=== PATIENT | male | born 1990 | race Caucasian/White ===

== ENCOUNTER 2020-02-28 06:27 | Outpatient (REF) | payer BC, SELFPAY ==
[2020-02-28 12:01] LABS: Alanine Aminotransferase 90 U/L (0-40); Albumin Level 4.2 g/dL (3.5-5.0); Alkaline Phosphatase 201 U/L (39-117); Anion Gap 14 (12-20); Aspartate Amino Transferase 58 U/L (5-37); Bilirubin Direct 7.1 mg/dL (0.0-0.5); Bilirubin Total 9.5 mg/dL (0.0-1.0); Blood Urea Nitrogen 10 mg/dL (9-16); Carbon Dioxide 25 mmol/L (22-29); Chloride 105 mmol/L (96-108); Estimated Glomerular Filt Rate > 60; Glucose Random 88 mg/dL (60-115); Potassium 4.1 mmol/l (3.3-5.1); Sodium 140 mmol/L (135-145); Total Protein 6.8 g/dL (6.5-8.0)
== END 2020-02-28 06:28 | disposition home or self-care (01) ==
LOC: HO.HMGCLDS 06:27
PROVIDERS: PCP Nurse Practitioner Family; Visit Provider Nurse Practitioner Family
DX: E80.6 Other disorders of bilirubin metabolism (principal)
CPT/HCPCS: 80053; 82248

== ENCOUNTER 2020-03-05 06:07 | Outpatient (REF) | payer BC, SELFPAY ==
[2020-03-05 11:22] LABS: INTERNATIONAL NORM RATIO 0.9 (0.9-1.1); Prothrombin Time 11.2 SEC (10.8-13.0)
[2020-03-05 11:27] LABS: Alanine Aminotransferase 90 U/L (0-40); Albumin Level 4.2 g/dL (3.5-5.0); Alkaline Phosphatase 192 U/L (39-117); Aspartate Amino Transferase 65 U/L (5-37); Iron 165 mcg/dL (45-160); Percent Iron Saturation 50 % (15-50); Total Iron Binding Capacity 328 mcg/dL (228-428); Total Protein 6.8 g/dL (6.5-8.0); Unsaturated Iron Binding 163 ug/dL
[2020-03-05 12:01] LABS: Ferritin 599 ng/mL (20-250)
[2020-03-07 13:32] LABS: Alpha 1 Anti-trypsin 203 mg/dL (83-199); Ceruloplasmin 49 mg/dL (18-36)
[2020-03-07 22:42] LABS: Anti Nuclear Antibody Pattern Mitotic, Centrosome; Anti Nuclear Antibody Screen POSITIVE (NEGATIVE); Anti Nuclear Antibody Titer 1:40 titer
== END 2020-03-05 06:08 | disposition home or self-care (01) ==
LOC: HO.HMGCLDS 06:07
PROVIDERS: PCP Nurse Practitioner Family; Visit Provider Internal Medicine
DX: K72.00 Acute and subacute hepatic failure without coma (principal); R94.5 Abnormal results of liver function studies
CPT/HCPCS: 36415; 80076; 82103; 82390; 82728; 83540; 85610; 86038; 86039

== ENCOUNTER 2020-03-12 06:20 | Outpatient (REF) | payer BC, SELFPAY ==
[2020-03-12 11:37] LABS: INTERNATIONAL NORM RATIO 0.9 (0.9-1.1); Prothrombin Time 10.3 SEC (10.8-13.0)
[2020-03-12 11:41] LABS: Alanine Aminotransferase 75 U/L (0-40); Alkaline Phosphatase 156 U/L (39-117); Aspartate Amino Transferase 51 U/L (5-37); Bilirubin Direct 3.2 mg/dL (0.0-0.5); Bilirubin Total 4.1 mg/dL (0.0-1.0); Total Protein 6.6 g/dL (6.5-8.0)
== END 2020-03-12 06:21 | disposition home or self-care (01) ==
LOC: HO.HMGCLDS 06:20
PROVIDERS: PCP Nurse Practitioner Family; Visit Provider Internal Medicine
DX: R17 Unspecified jaundice (principal); R94.5 Abnormal results of liver function studies
CPT/HCPCS: 36415; 80076; 85610

== ENCOUNTER 2020-03-20 06:21 | Outpatient (REF) | payer BC, SELFPAY ==
[2020-03-20 11:43] LABS: Anion Gap 15 (12-20); Blood Urea Nitrogen 13 mg/dL (9-16); Calcium 8.9 mg/dL (8.4-10.2); Carbon Dioxide 27 mmol/L (22-29); Chloride 101 mmol/L (96-108); Estimated Glomerular Filt Rate > 60; Glucose Random 105 mg/dL (60-115); Potassium 4.3 mmol/l (3.3-5.1); Sodium 139 mmol/L (135-145)
== END 2020-03-20 06:22 | disposition home or self-care (01) ==
LOC: HO.HMGCLDS 06:21
PROVIDERS: PCP Nurse Practitioner Family; Visit Provider Nurse Practitioner Family
DX: R74.8 Abnormal levels of other serum enzymes (principal)
CPT/HCPCS: 80048

== ENCOUNTER 2020-03-27 06:29 | Outpatient (REF) | payer BC, SELFPAY ==
[2020-03-27 11:52] LABS: Alanine Aminotransferase 93 U/L (0-40); Albumin Level 4.1 g/dL (3.5-5.0); Alkaline Phosphatase 109 U/L (39-117); Anion Gap 13 (12-20); Aspartate Amino Transferase 53 U/L (5-37); Bilirubin Total 1.9 mg/dL (0.0-1.0); Blood Urea Nitrogen 13 mg/dL (9-16); Calcium 8.5 mg/dL (8.4-10.2); Carbon Dioxide 28 mmol/L (22-29); Chloride 104 mmol/L (96-108); Estimated Glomerular Filt Rate > 60; Glucose Random 89 mg/dL (60-115); Potassium 4.1 mmol/l (3.3-5.1); Sodium 141 mmol/L (135-145); Total Protein 6.7 g/dL (6.5-8.0)
== END 2020-03-27 06:30 | disposition home or self-care (01) ==
LOC: HO.HMGCLDS 06:29
PROVIDERS: PCP Nurse Practitioner Family; Visit Provider Nurse Practitioner Family
DX: R74.8 Abnormal levels of other serum enzymes (principal)
CPT/HCPCS: 80053

== ENCOUNTER 2020-04-17 10:20 | Outpatient (REF) | payer BC, SELFPAY | END 2020-04-17 10:21 | disposition home or self-care (01) | LOC: HO.LAB 10:20 | PROVIDERS: PCP Nurse Practitioner Family; Visit Provider Internal Medicine | DX: Z20.828 Contact with and (suspected) exposure to other viral communicable diseases (principal) | CPT/HCPCS: C9803; U0003 ==

== ENCOUNTER 2023-07-28 07:24 | Outpatient (AMB) | payer BC, SELFPAY ==
--- NOTE | 2023-07-28 07:38 | A.OFFPC_ITS ---
Vital Signs 07/28/23 07:42 Height 5 ft 9 in Weight 262 lb BMI 38.7 BP 118/70 Blood Pressure Location Lt brachial Position Sitting Pulse 99 Pulse Source Pulse Oximeter Pulse Oximetry (%) 97 Oxygen Delivery Method Room Air Intake Visit Reasons: Annual Pe Intake Note: pt is here for annual exam, pt is interested in a vasectomy and low T Critical Care Paramedic Required: No Allergies environmental allergies Allergy (Unknown, Verified 07/28/23 08:06) Congestion Seasonal Allergies Allergy (Unknown, Verified 07/28/23 08:06) Runny Nose, Congestion Medication List - Last Reconciled 07/28/23 by IGOR Aleman No Known Home Meds Tobacco use date assessed: 07/28/23 Dental Screening Dental Screen Date: 07/28/23 Did you have a dental visit in the last 12 months?: Yes Did you have a dental problem in the last 6 months where you did not have access to dental care?: No Was dental information given to patient?: Patient has dentist HPI Annual Pe HPI Details Pt is here for a PE. Pt would like to be referred for a vasectomy. #2 Pt does report fatigue, does report excessive snoring. Will refer to sleep medicine for sleep eval/treatment, labs ordered. [facility] Surgical History S/P scrotal varicocelectomy History of hemorrhoidectomy Family History Father Substance use disorder Mother T-cell lymphoma Substance use disorder Social History Housing: House Tobacco use type: Smokeless Tobacco e-Cigarette/Vaping Use: Currently Using (THC ) service: No Current occupational status: employed Cognitive needs: No Hearing needs: No Vision needs: No Questionnaire PHQ-9 Over the last 2 weeks, how often have you been bothered by any of the following problems? 1. Little interest or pleasure in doing things: not at all 2. Feeling down, depressed, or hopeless: not at all 3. Trouble falling or staying asleep, or sleeping too much: not at all 4. Feeling tired or having little energy: several days 5. Poor appetite or overeating: not at all 6. Feeling bad about yourself - or that you are a failure or have let yourself or your family down: not at all 7. Trouble concentrating on things, such as reading the newspaper or watching television: not at all 8. Moving or speaking so slowly that other people could have noticed. Or the opposite - being so fidgety or restless that you have been moving around a lot more than usual: not at all 9. Thoughts that you would be better off or of hurting yourself in some way: not at all Total score: 1 Depression Screening Interpretation: Negative Depression Screening Done: Yes 99783 - PHQ-9 Billing: Yes Source: Developed by Drs. Gerardo Melgar, Maria De Jesus Ibrahim, Ishmael Balbuena and colleagues, with an educational dennis from [employer]. Thrive Questionnaire Date Thrive assessed: 07/28/23 I am a: Patient What is your living situation today?: I have a steady place to live Within the past 12 months, did the food you bought not last and you didn't have the money to get more?: Never true Within the past 12 months, did you worry whether your food would run out before you got money to buy more?: Never true Do you have trouble paying for medicines?: No Do you have trouble getting transportation to medical appointments?: No Do you have trouble paying your heating and electricity bill?: No Do you have trouble taking care of your child, family member or friend?: No Do you have trouble with day-to-day activities such as bathing, preparing meals, shopping, managing finances, etc.?: No Are you currently unemployed and looking for a job?: No Are you interested in more education?: No Please select the resources that you would like help with: None Currently or been in a relationship where the following occur: no concerns reported THRIVE Score: 0 AUDIT C Alcohol Use Questionnaire (AUDIT-C) 1. How often do you have a drink containing alcohol?: Monthly or less 2. How many drinks containing alcohol do you have on a typical day when you are drinking?: 3 or 4 3. How often do you have six or more drinks on one occasion?: Less than monthly Total Score: 3 Score Reviewed/Action Taken: Yes ABBIE-7 AMB Questionnaire ABBIE-7 Date ABBIE - 7 assessed: 07/28/23 Feeling nervous, anxious, or on edge: 0 = Not at all Not being able to stop or control worryin = Not at all Worrying too much about different things: 0 = Not at all Trouble relaxin = Not at all Being so restless that it is hard to sit still: 0 = Not at all Becoming easily annoyed or irritable: 0 = Not at all Feeling afraid as if something awful might happen: 0 = Not at all Total ABBIE-7 score (0-4 normal; 5-9 mild; 10-14 moderate; 15-21 severe): 0 Source: Developed by Drs. Gerardo Melgar, Maria De Jesus Ibrahim, Ishmael Balbuena and colleagues, with an educational dennis from [employer]. ABBIE-7 Assessment Billing ABBIE-7 Assessment Tool: ABBIE-7 Assessment 91686 Review of Systems Const Denies chills and Denies fever(s) Eyes Denies blurry vision ENT Denies vertigo, Denies dizziness and Denies sore throat Card Denies chest pain at rest, Denies chest pain with activity, Denies diaphoresis, Denies dyspnea and Denies dyspnea on exertion Resp Denies cough, Denies dyspnea, Denies dyspnea on exertion and Denies wheezing GI Denies abdominal pain, Denies melena, Denies hematochezia, Denies constipation, Denies diarrhea and Denies loose stools Denies hematuria Musc Denies numbness and Denies tingling Skin/Breast Denies lesions Neuro Denies vertigo, Denies dizziness, Denies numbness and Denies tingling Psych Denies anxiety, Denies depression, Denies homicidal ideation, Denies suicidal ideation and Denies other (substance abuse) Aller/Immun Denies wheezing Physical exam (Primary Care) Tobacco/Smoking Status: Tobacco use Status Tobacco use date assessed 07/22/22 07/28/23 07:40 Tobacco use type Smokeless Tobacco 07/28/23 07:40 e-Cigarette/Vaping Use Currently Using (THC ) 07/28/23 07:40 Depression Screening Interpretation: Negative Thrive Assessment: Date of Thrive Assessment Date Thrive assessed 07/22/22 07/28/23 07:40 Currently or been in a relationship where the following occur: no concerns reported Const General: cooperative Nutritional Appearance: well nourished Orientation/consciousness: patient oriented x3 HENMT Head: Yes normal to inspection, Yes normocephalic and Yes atraumatic Ears: TM normal on the right and TM normal on the left (cerumen noted) Eyes General: appearance normal, both eyes and all related structures Alignment and Position: alignment normal and position normal Neck Neck: Yes normal visual inspection and Yes no lymphadenopathy Resp Effort & Inspection: normal respiratory effort Auscultation: clear to auscultation bilaterally Cardio Rate: regular rate Rhythm: regular rhythm Heart sounds: S1 normal heart sound present, S2 normal heart sound present and no murmurs GI Palpation (GI): Soft to palpation and nontender Auscultation: normal bowel sounds Male General Exam: Yes normal external exam Penis: normal penis Scrotum: scrotum normal, testes descended bilaterally and no inguinal hernias Testes: no testicular mass Skin Rashes: no rashes Neuro General: patient oriented x3, moves all extremities, no focal motor deficits and deep tendon reflexes 2+ bilaterally Romberg Test: Negative Extrem Right lower extremity: no edema Left lower extremity: no edema Psych Affect: normal affect Attitude: cooperative Thought process: Normal thought process present Assessment and Plan Assessment & Plan (1) Physical exam: Code(s): Z00.00 - Encounter for general adult medical examination without abnormal findings (2) Encounter for vasectomy: Code(s): Z30.2 - Encounter for sterilization Plan: referred previously, pt never followed through, asking for another referral to urology. (3) Fatigue: Code(s): R53.83 - Other fatigue Plan referred to sleep medicine, labs ordered Orders: Orders Complete Blood Count Auto Diff Today Z00.00 - Encounter for general adult medical examination without abnormal findings Comprehensive [place]. Panel Fast Today Z00.00 - Encounter for general adult medical examination without abnormal findings TSH reflex Free T4 Today Z00.00 - Encounter for general adult medical examination without abnormal findings UA CC w/rflx Micro + Cult Today Z00.00 - Encounter for general adult medical examination without abnormal findings Lipid Panel Today Z00.00 - Encounter for general adult medical examination without abnormal findings Vitamin B12 and Folate Today R53.83 - Other fatigue IRON PROFILE Today R53.83 - Other fatigue Ferritin Today R53.83 - Other fatigue Referrals Sleep Medicine Referral R53.83 - Other fatigue Urology Referral Z30.2 - Encounter for sterilization Coding Level of Care Code Est Pt Prev Care 18-39y(95661) Diagnoses Physical exam Z00.00 Encounter for vasectomy Z30.2 Fatigue R53.83 Additional Codes ABBIE-7 Assessment Billing - ABBIE-7 Assessment Tool: ABBIE-7 Assessment [id number] ([id number])
[2023-07-28 07:42] VITALS: BP 118/70; PULSE 99; O2SAT 97; BMI 38.7
== END 2023-07-28 08:44 | disposition home or self-care (01) ==
PROVIDERS: PCP Nurse Practitioner Family; Visit Provider Nurse Practitioner Family
DX: Z00.00 Encounter for general adult medical examination without abnormal findings (principal); R53.83 Other fatigue
CPT/HCPCS: 99395

== ENCOUNTER 2023-08-31 15:32 | Outpatient (AMB) | payer BC, SELFPAY ==
[2023-08-31 15:33] VITALS: BP 130/82; PULSE 82; O2SAT 98; BMI 37.9
--- NOTE | 2023-08-31 15:33 | MHC.OFFVIS ---
Vital Signs 08/31/23 15:33 Height 5 ft 9 in Weight 257 lb BMI 37.9 BP 130/82 Blood Pressure Location Rt brachial Position Sitting Pulse 82 Pulse Source Pulse Oximeter Pulse Oximetry (%) 98 Oxygen Delivery Method Room Air Intake Visit Reasons: INP-Other fatigue - CONF w/address Allergies environmental allergies Allergy (Unknown, Verified 07/28/23 08:06) Congestion Seasonal Allergies Allergy (Unknown, Verified 07/28/23 08:06) Runny Nose, Congestion HPI Comments Details: 33 y/o male patient presents for new in-person visit for sleep consultaion. Pt reports snoring, and daytime sleepiness. He sleeps about 6 hrs, can't sleep more than 6 hrs, he thinks that 6 hrs enough for him. However, he wakes up groggy and feels lethargic early in the morning. Morning is rough for him to awake. Sleep questionnaire: Have you ever been diagnosed with a sleep disorder? No. Have you ever had a sleep study in the past? No. Have you ever been treated for a sleep disorder? No. Do you take medications for a sleep disorder? No. Do you snore? Yes. Do you wake up gasping at night? No. Do you have episodes of apneas? No. If yes, are they witnessed? No. Do you have episodes of nocturnal chest pain or dyspnea? No. Do you have difficulty initiating sleep? No. Do you have difficulty maintaining sleep? No. Do you wake up tired? Yes. Do you have headaches upon awakening? Frequently. Do you wake up with dry mouth or throat? Yes. Do you have GERD? No. Do you have nocturia? No. Do you have nocturnal leg cramps? Yes, sometimes. Do you have symptoms of restless legs? No. Do you act out your dreams? No. Sleep hygiene questionnaire: What is your usual sleep routine? Usual bedtime is at 10-11 pm; Usual wake up time is at 5:45 am. Do you take naps? No. Is your sleep environment cool, dark, and quiet? No, needs sound to sleep. Do you exercise? Not much. Do you take caffeine or other stimulants? Coffee in the morning. Do you use electronics in bed? Yes, TV on. What is your work schedule? Hypersomnolence questionnaire: Do you have daytime tiredness or fatigue? Yes. Do you easily fall asleep when inactive? Yes. Have you ever had episodes of sudden weakness? No. Have you ever had episodes of sudden weakness associated with strong emotions? No. PFSH Surgical History S/P scrotal varicocelectomy History of hemorrhoidectomy Family History Father Substance use disorder Mother T-cell lymphoma Substance use disorder Social History Housing: House Tobacco use type: Smokeless Tobacco e-Cigarette/Vaping Use: Currently Using (THC ) service: No Current occupational status: employed Cognitive needs: No Hearing needs: No Vision needs: No Review of Systems Const All systems reviewed & are unremarkable except as noted in HPI and below Physical Exam Vital Signs: Last Vital Signs Pulse 82 08/31/23 15:33 BP 130/82 08/31/23 15:33 Pulse Ox 98 08/31/23 15:33 Oxygen Delivery Method Room Air 08/31/23 15:33 BMI result Body Mass Index 37.9 Const General: cooperative Nutritional Appearance: obese Orientation/consciousness: patient oriented x3 Neck Neck: Yes full ROM and Yes supple Resp Effort & Inspection: normal respiratory effort and able to speak in complete sentences Neuro General: patient oriented x3, gait normal and moves all extremities Cranial nerves: Yes CN's II-XII intact bilaterally Cognition (Neuro): normal cognition Gait exam (Neuro): Normal gait present Motor exam (neuro): 5/5 motor strength present throughout Psych Appearance: grossly normal Mental Status: mental status grossly normal Speech and movement: Normal speech and movement present Affect: normal affect Attitude: cooperative Assessment & Plan Assessment & Plan (1) Daytime sleepiness: Code(s): R40.0 - Somnolence Category: Medical (2) Snoring: Code(s): R06.83 - Snoring Category: Medical (3) Fatigue: Code(s): R53.83 - Other fatigue Category: Medical Plan Pt is advised to undergo home sleep study to assess for sleep apnea. Will f/u with pt after study to discuss results and appropriate treatment options. Sleep hygiene education provided. Pt to call with any worsening concerns or questions. Orders: Orders RT home sleep study 08/31/23 R06.83 - Snoring, R40.0 - Somnolence
== END 2023-08-31 15:48 | disposition home or self-care (01) ==
PROVIDERS: Absent Provider Nurse Practitioner Family; PCP Nurse Practitioner Family; Visit Provider Nurse Practitioner Family
DX: R40.0 Somnolence (principal); R06.83 Snoring; R53.83 Other fatigue
CPT/HCPCS: 99203

== ENCOUNTER → 2023-08-31 15:32 | Outpatient (BNVA) | payer BC, SELFPAY | PROVIDERS: Absent Provider Nurse Practitioner Family; PCP Nurse Practitioner Family; Visit Provider Nurse Practitioner Family ==

== ENCOUNTER 2023-12-08 14:37 | Outpatient (AMB) | payer BC, SELFPAY ==
--- NOTE | 2023-12-08 14:41 | MHC.OFFVIS ---
Intake Visit Reasons: vasectomy consult Intake Note: New Patient presents for initial visit for Vasectomy Consult Urology Medications: none Blood Thinner: none Children#2 Expected Children#0 Clarification Operator Required: No Accompanied by: Self / Same As Patient Allergies environmental allergies Allergy (Unknown, Verified 12/08/23 19:54) Congestion Seasonal Allergies Allergy (Unknown, Verified 12/08/23 19:54) Runny Nose, Congestion Medication List - Last Reconciled 12/08/23 by IGOR Lambert acetaminophen-codeine 300-30 mg 1 tab PO Q8H 3 days diazepam 2 mg PO BID PRN 1 day HPI Comments Details: Tapan is a very pleasant 33-year-old male patient of Dr. Grey. He presents to the office today for - vasectomy evaluation Vasectomy evaluation The patient presents for vasectomy consultation.? 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The vasectomy may be complicated due to a history of no complicating issues. Patient education has been provided via AUA video, via printed information, risks of failure, recovery time, bruising and potential pain syndrome have been stressed Discussion today focused on the presence of vasectomy and the risks, benefits and alternatives that are available. Vasectomy as intended as a permanent form of control. Printed information and literature was provided to the patient. Overall there is a one in 2500 failure rate. This can occur at any time after vasectomy. Risks were discussed highlighting hematoma, spermatocele, epididymal congestion, development of sperm antibodies, and development of chronic pain estimated between 1-5%. The procedure was reviewed in detail. Anatomical diagrams of the male genitalia were used to explain the location of the vas deferens. The vas deferens will be transected, the proximal end will be cauterized, a metal clip would be applied to separate the 2 vas deferens ends. It was explained the procedure will be done in the office and takes approximately 10-15 minutes. Less common problems that arise with vasectomy include hematoma, bleeding, allergic reaction to anesthetic, epididymal infection, epididymal congestion, scrotal discomfort, spermatic leak, spermatic granuloma and the possibility of antisperm antibodies. He understands these risks and wishes to proceed. Consent was signed at the office today. He also understands that it takes 12 weeks for sperm to fully clear the system. He will need to provide a semen sample at 12 weeks and if this is not clear a 2nd sample at 16 weeks. Medical clearance to stop using protection will only be provided if he satisfies published criteria for sperm clearance. [facility] Surgical History S/P scrotal varicocelectomy History of hemorrhoidectomy Family History Father Substance use disorder Mother T-cell lymphoma Substance use disorder Social History Housing: House Tobacco use type: Smokeless Tobacco e-Cigarette/Vaping Use: Currently Using (THC ) service: No Current occupational status: employed Cognitive needs: No Hearing needs: No Vision needs: No Review of Systems Const All systems reviewed & are unremarkable except as noted in HPI and below Physical Exam Const General: cooperative, healthy appearing, comfortable, no acute distress, well developed, alert and awake Orientation/consciousness: patient oriented x3 Limitations: no limitations HEENT Head: Yes normal to inspection, Yes normocephalic and Yes atraumatic Ears: hearing grossly normal bilaterally Eyes General: appearance normal, both eyes and all related structures Neck Neck: Yes normal visual inspection and Yes trachea midline Chest Chest palpation & inspection: normal inspection of the chest Resp Effort & Inspection: normal respiratory effort and able to speak in complete sentences Cardio Rate: regular rate GI Inspection: Yes normal to inspection General: Yes no CVA tenderness Back/Spine/Pelvis Back: no CVA tenderness Skin General skin exam: no rashes or lesions noted Neuro General: patient oriented x3 Extrem General: Yes normal to inspection Psych Appearance: grossly normal and well kempt Mental Status: mental status grossly normal Speech and movement: Normal speech and movement present and Clear speech present Affect: normal affect Attitude: cooperative Thought process: Normal thought process present Thought content: Normal thought content present Insight: Fair insight present (Psych) Judgement: Fair judgement present (Psych) Assessment & Plan Assessment & Plan (1) Anxiety about health: Code(s): R45.89 - Other symptoms and signs involving emotional state Category: Medical (2) Encounter for vasectomy: Code(s): Z30.2 - Encounter for sterilization Category: Medical Plan Vasectomy was discussed at length; risks and benefits. All questions were answered. Discussed semen analysis with in office follow-up verses fellows kit; information provided. Prescriptions provided; discussed specific instructions of bringing medications to office day of procedure. Consent obtained. Will schedule for vasectomy Follow-up status post vasectomy per doctor's orders; or sooner with any issues, concerns, and or questions. Medications: New diazepam Take medication after arrival at office 2 mg PO BID PRN 2 tabs 0RF anxiety 1 day R45.89 - Other symptoms and signs involving emotional state acetaminophen-codeine 300-30 mg 1 tab PO Q8H 9 tabs 0RF 3 days R45.89 - Other symptoms and signs involving emotional state Patient Instructions: The patient had an opportunity to ask questions regarding the treatment plan. All questions were answered. Physical exam, labs, and imaging were discussed and reviewed in detail. As well as risks, benefits, and discussion of treatment choices. No major barriers to understanding were identified. The patient expressed understanding and agreement with the above treatment plan. The patient was made aware they should contact our office by phone for worsening of their current condition, the appearance of new symptoms, or with any questions or concerns. Compliance is encouraged with any medications and follow up testing that is ordered. It is a privilege to be allowed the opportunity to participate in? your urological care.? Again, if you have any questions or concerns If you have any questions or concerns please do not hesitate to contact me. The office is [phone]. This note is constructed using voice recognition software. While every effort has been made to ensure accuracy fish drier errors may have been included. Yours sincerely, IGOR Lambert Coding Level of Care Code New Pt Level 4 (21852) Diagnoses Anxiety about health R45.89 Encounter for vasectomy Z30.2
== END 2023-12-08 15:13 | disposition home or self-care (01) ==
PROVIDERS: PCP Nurse Practitioner Family; Visit Provider Nurse Practitioner Family
DX: R45.89 Other symptoms and signs involving emotional state (principal); Z30.2 Encounter for sterilization
CPT/HCPCS: 99204

== ENCOUNTER → 2023-12-08 14:37 | Outpatient (BNVA) | payer BC, SELFPAY | PROVIDERS: PCP Nurse Practitioner Family; Visit Provider Nurse Practitioner Family ==

== ENCOUNTER 2024-01-13 14:53 | Outpatient (AMB) | payer BC, SELFPAY ==
--- NOTE | 2024-01-13 15:19 | A.OFFVIS_ITS ---
Intake Visit Reasons: vasectomy Intake Note: Patient is present for Vasectomy Flexible Nanny Required: No Allergies environmental allergies Allergy (Unknown, Verified 12/08/23 19:54) Congestion Seasonal Allergies Allergy (Unknown, Verified 12/08/23 19:54) Runny Nose, Congestion HPI Comments Details: Tapan is a very pleasant 33-year-old male patient of Dr. Grey. He presents to the office today for - vasectomy evaluation Presents for vasectomy procedure Procedure performed 12 week follow-up Vasectomy evaluation The patient presents for vasectomy consultation.? 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[employer] Surgical History S/P scrotal varicocelectomy History of hemorrhoidectomy Family History Father Substance use disorder Mother T-cell lymphoma Substance use disorder Social History Housing: House Tobacco use type: Smokeless Tobacco e-Cigarette/Vaping Use: Currently Using ([employer] ) service: No Current occupational status: employed Cognitive needs: No Hearing needs: No Vision needs: No Review of Systems Const Denies chills and Denies fever(s) Card Reports no additional complaints and Denies syncope Resp Denies cough GI Denies abdominal pain and Denies heartburn Reports as per HPI and Denies change in libido Neuro Denies syncope Psych Denies change in libido Endo Denies change in libido Physical Exam Const General: cooperative, healthy appearing, comfortable and no acute distress Orientation/consciousness: patient oriented x3 HEENT Face and sinus: Yes normal facial exam Mouth: moist mucous membranes Neck Neck: Yes normal visual inspection, Yes full ROM and Yes trachea midline Chest Chest palpation & inspection: normal inspection of the chest Resp Effort & Inspection: normal respiratory effort, able to speak in complete senten stan and no respiratory distress GI Inspection: Yes normal to inspection Back/Spine/Pelvis Cervical Spine: normal cervical lordosis Thoracic/Lumbar Spine: thoracic and lumbar spine normal to inspection Skin General skin exam: no rashes or lesions noted Neuro General: patient oriented x3, gait normal, tone normal and moves all extremities Extrem General: Yes normal to inspection and Yes capillary refill normal Office Procedures Vasectomy Details: Preoperative diagnosis: Anxiety regarding Postoperative diagnosis: Anxiety regarding unplanned Procedure: Bilateral vasectomy Informed consent had been completed. Preoperative and postoperative instructions were provided to the patient. The patient has transportation to home identified at the completion of the procedure. Anti-anxiolytic prescription medication had been taken after consent verification and all questions answered. Tylenol with Codeine pain medication was also provided. The penis was elevated using a rubber band that was attached to the patient's shirt. Both vasa were palpated through the skin using a 3 finger technique and the penoscrotal junction was prepped with Betadine. After Betadine application the left vas was elevated using a 3 finger grasping technique. 1% lidocaine was used to create a subdermal bubble. Further anesthetic was then advanced using the 25-gauge needle along the vasa in a proximal fashion. Approximately 2 minutes were allowed to for local anesthetic uptake. Using the sharp spreading instrument the scrotal skin was spread longitudinally in line with the vasa until the subdermal layer had been divided. The vasa was then elevated from the scrotum using a ring clamp. Care was taken to elevate the superior portion of the vasa by rotating the ring clamp in a caudad direction. The battery powered cautery was used to divide the vasal sheath in a longitudinal direction on the exposed vasa and to strip the vasal sheath from the vasa. A 2nd narrower ring clamp was placed on the exposed vas and used to lift the vas from the vasal sheath. so it grasped the elevated vas. The cautery was used to divide vasal attachments and allow full exposure of a small loop of vasa. The sharp spreading instrument was then used to create a tunnel under the vasa and spread to allow the blood vessels of the vasa to retract from the vasa. A mosquito clamp was placed on the proximal portion of the vas. The battery-powered cautery was used to make a partial division in the proximal vas and then inserted in order to cauterize the proximal end of the vas. This was then cut and allowed to retract into the vasal sheath. The mosquito was then used to twist the vasa 180 degrees creating a fascial interposition. Using a 4- 0 chromic suture the fascial interposition was sutured closed. The distal portion of the vas was then cut in order to obtain a segment of vasa. The vasa were allowed to retract back into the scrotum. A small snap was then used to approximate the skin edges and allow hemostasis without placement of a suture. A similar procedure was repeated on the right side. He tolerated the procedure well. Triple antibiotic was applied. A gauze was applied. An ice pack was applied to assist with minimizing swelling. Postoperative instructions were confirmed. He understands the need to continue to use control methods. A semen sample should be brought for inspection under the microscope in 10-12 weeks. CPT 60669 Vasectomy performed by: Suhas Palomino Informed consent given: Yes Informed consent signed: Yes Time out checklist: patient, procedure, site marked/identified, positioning of patient, supplies available, allergies confirmed and team agrees on procedure Anesthetic used: other Specimens: vas segments not sent to pathology [id number] - Vasectomy Assessment & Plan Assessment & Plan (1) Anxiety about health: Code(s): R45.89 - Other symptoms and signs involving emotional state Category: Medical Plan Twelve week follow-up Patient Instructions: Imaging studies, laboratory and physical exam results were discussed and reviewed in detail. No major barriers to patient understanding were identified. An opportunity to ask questions regarding the treatment plan was provided. All questions were answered. The patient expressed understanding and agreement with the above treatment plan. The patient is aware they should contact our office by phone for worsening of their current condition or the appearance of new urologic symptoms. Compliance is encouraged with any medications and followup testing that is ordered. It is a privilege to participate in the urologic care of your patient. If you have any questions or concerns regarding treatment for the above conditions, or other urologic issues, please do not hesitate to contact me. The office telephone contact is [phone]. This note is constructed using voice recognition software. While every effort has been made to ensure accuracy strap maker errors may have been included. Yours sincerely, Dr Suhas Palomino MD, [facility] - Urology Providers of Expert, Compassionate Care for the Genitourinary System Coding Level of Care Code Procedure Only Diagnoses Anxiety about health R45.89 CPT Codes Office Procedure - CPT: 59943 - Vasectomy ([id number])
== END 2024-01-13 16:06 | disposition home or self-care (01) ==
PROVIDERS: PCP Nurse Practitioner Family; Visit Provider Urology
DX: Z30.2 Encounter for sterilization (principal); R45.89 Other symptoms and signs involving emotional state
CPT/HCPCS: 55250

== ENCOUNTER → 2024-01-13 14:53 | Outpatient (BNVA) | payer BC, SELFPAY | PROVIDERS: PCP Nurse Practitioner Family; Visit Provider Urology | DX: Z30.2 Encounter for sterilization (principal); F41.8 Other specified anxiety disorders | CPT/HCPCS: 55250 ==

== ENCOUNTER 2024-04-05 15:27 | Outpatient (AMB) | payer BC, SELFPAY ==
--- NOTE | 2024-04-05 15:52 | MHC.OFFVIS ---
Intake Visit Reasons: 12w semen analysis Intake Note: Patient is present for Semen analysis Senior Instructional Designer Required: No Allergies environmental allergies Allergy (Unknown, Verified 04/05/24 15:52) Congestion Seasonal Allergies Allergy (Unknown, Verified 04/05/24 15:52) Runny Nose, Congestion HPI Comments Details: Tapan is a very pleasant 33-year-old male patient of Dr. Grey. He presents to the office today for - vasectomy follow-up Presents for vasectomy follow-up No sperm per high-powered field Vasectomy evaluation The patient presents for vasectomy consultation.? 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[employer] Surgical History S/P scrotal varicocelectomy History of hemorrhoidectomy Family History Father Substance use disorder Mother T-cell lymphoma Substance use disorder Social History Housing: House Tobacco use type: Smokeless Tobacco e-Cigarette/Vaping Use: Currently Using ([employer] ) service: No Current occupational status: employed Cognitive needs: No Hearing needs: No Vision needs: No Review of Systems Const Denies chills and Denies fever(s) Card Reports no additional complaints and Denies syncope Resp Denies cough GI Denies abdominal pain and Denies heartburn Reports as per HPI and Denies change in libido Neuro Denies syncope Psych Denies change in libido Endo Denies change in libido Physical Exam Const General: cooperative, healthy appearing, comfortable and no acute distress Orientation/consciousness: patient oriented x3 HEENT Face and sinus: Yes normal facial exam Mouth: moist mucous membranes Neck Neck: Yes normal visual inspection, Yes full ROM and Yes trachea midline Chest Chest palpation & inspection: normal inspection of the chest Resp Effort & Inspection: normal respiratory effort, able to speak in complete sentences and no respiratory distress GI Inspection: Yes normal to inspection Back/Spine/Pelvis Cervical Spine: normal cervical lordosis Thoracic/Lumbar Spine: thoracic and lumbar spine normal to inspection Skin General skin exam: no rashes or lesions noted Neuro General: patient oriented x3, gait normal, tone normal and moves all extremities Extrem General: Yes normal to inspection and Yes capillary refill normal Assessment & Plan Assessment & Plan (1) Anxiety about health: Code(s): R45.89 - Other symptoms and signs involving emotional state Category: Medical Plan P.r.n. follow-up Patient Instructions: Imaging studies, laboratory and physical exam results were discussed and reviewed in detail. No major barriers to patient understanding were identified. An opportunity to ask questions regarding the treatment plan was provided. All questions were answered. The patient expressed understanding and agreement with the above treatment plan. The patient is aware they should contact our office by phone for worsening of their current condition or the appearance of new urologic symptoms. Compliance is encouraged with any medications and followup testing that is ordered. It is a privilege to participate in the urologic care of your patient. If you have any questions or concerns regarding treatment for the above conditions, or other urologic issues, please do not hesitate to contact me. The office telephone contact is [phone]. This note is constructed using voice recognition software. While every effort has been made to ensure accuracy travel cota errors may have been included. Yours sincerely, Dr Suhas Palomino MD, [facility] - Urology Providers of Expert, Compassionate Care for the Genitourinary System Coding Level of Care Code Est Pt Level 3 (64889) Diagnoses Anxiety about health R45.89
== END 2024-04-05 16:17 | disposition home or self-care (01) ==
PROVIDERS: PCP Nurse Practitioner Family; Visit Provider Urology
DX: R45.89 Other symptoms and signs involving emotional state (principal)
CPT/HCPCS: 99024

== ENCOUNTER → 2024-04-05 15:27 | Outpatient (BNVA) | payer BC, SELFPAY | PROVIDERS: PCP Nurse Practitioner Family; Visit Provider Urology ==